=== PATIENT | male | born 1950 | race Caucasian/White ===

== ENCOUNTER → 2018-12-30 18:21 | Outpatient (REF) | payer MEDICARE, OTHER, SELFPAY ==
[2018-12-30 19:47] LABS: Prostate Specific Antigen 1.36 ng/mL (0.10-4.00)
== END ==
LOC: LAB 18:21
PROVIDERS: Family Provider Internal Medicine; PCP Internal Medicine; Visit Provider Family Medicine Geriatric Medicine
DX: C61 Malignant neoplasm of prostate (principal)
CPT/HCPCS: 36415; 84153

== ENCOUNTER 2020-12-03 09:40 | Day surgery (SDC) | payer MEDICARE, OTHER, SELFPAY ==
[2020-12-03] VITALS (12 sets, daily range): BP systolic 136–173; BP diastolic 60–84; PULSE 41–58; RESP 10–18; TEMP 36.3–37; O2SAT 97–100; BMI 24.7
--- NOTE | 2020-12-03 | PATH_ITS ---
[facility] Accession Number: [id number] . 01 Material submitted: . cecum - CECUM POLYP . 02 Diagnosis: Cecum, Polyp, Biopsy: Sessile serrated adenoma. MRV 12/06/2020 1307 Local . 02 Electronically signed: . Audelia Baker MD, Pathologist NPI- [id number] . 01 Gross description: . CECUM POLYP: Received in formalin are 2 fragment(s) of joyner, soft tissue measuring 0.1 x 0.1 x 0.1 cm to 0.8 x 0.2 x 0.2 cm submitted entirely in 1 cassette(s) /SUZETTE 12/05/2020 0037 Local . 02 Pathologist provided ICD-10: D12.0 . 02 CPT . 153492 Performed at: 01 [facility] [address] [id number] MD Ricardo Bueno MD Phone: [phone] Performed at: 02 [facility] [address] [place], [place] [id number] MD Audelia Baker MD Phone: [phone]
[2020-12-03] MEDS: LACTATED RINGERS 1,000 ML 200 ML IV (10:47)
--- NOTE | 2020-12-03 10:53 | SUR.PREOP ---
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 PATIENT WILL TAKE [employer] TAXI TO [facility]. DR. PARKS OF SAME.
--- NOTE | 2020-12-03 11:01 | PM.HP.1 ---
History of Present Illness History of Present Illness Date Patient Seen: 12/03/20 Time Patient Seen: 10:20 Chief complaint: SDC Narrative: The patient is a gentleman here for screening colonoscopy. It has been about 6 years size or 7 years since his last colonoscopy. He has a personal history of polyps Patient History Medical History BPH (benign prostatic hyperplasia) Family history of malignant neoplasm of prostate Male erectile disorder Nocturia associated with benign prostatic hyperplasia Nocturia associated with benign prostatic hyperplasia Surgical History H/O hernia repair S/P total hip resurfacing Family & Social History Social History: household members none Tobacco & Substance use: Smoking Status Never smoker alcohol intake current alcohol intake frequency a few times a week Substance Use Type does not use Meds Home Medications and Allergies Home Medications Medication Instructions Recorded Confirmed Type CHOLECALCIFEROL (VITAMIN D3) 1,000 units PO #0 04/26/13 09/05/20 History (VITAMIN D3) Fish Oil 1,000 mg PO QDAY #0 04/26/13 12/03/20 History clonazepam [Klonopin] 1 mg PO HS #0 04/26/13 12/03/20 History lisinopril 40 mg PO QDAY #0 04/26/13 12/03/20 History simvastatin 20 mg PO BEDTIME #0 04/26/13 12/03/20 History coenzyme Q10 75 mg capsule 75 mg PO DAILY 05/02/20 09/05/20 History desmopressin 0.2 mg tablet 0.2 mg PO BEDTIME #90 tab 08/14/20 12/03/20 Rx Allergies Allergy/AdvReac Type Severity Reaction Status Date / Time Iodinated Contrast Media Allergy Swelling Verified 12/03/20 10:46 of Lip/Tongue/Throat Review of Systems Review of Systems ROS: Yes All systems reviewed with the patient and are negative except as otherwise documented Exam Vital Signs (past 8 hours): - 12/03/20 10:24 Temperature 97.3 F L Pulse Rate 58 L Respiratory Rate 16 Blood Pressure 173/82 H Pulse Oximetry 100 Oxygen Delivery Method Room Air Oxygen Flow Rate 0 Narrative Exam Narrative: Pleasant cooperative patient no apparent distress. Lungs are clear to auscultation. No rales or rhonchi. Heart regular rate and rhythm no murmur gallop. Abdomen is soft nontender without mass. No obvious hernias. Patient is alert and oriented x3. Assessment & Plan Assessment & Plan narrative: The patient for a screening colonoscopy. I have discussed the procedure with them. Risks of bleeding, perforation which would necessitate major operation, failure to find remove all lesions, the potential tattoo were all discussed. All questions were answered. They wished to proceed.
--- NOTE | 2020-12-03 11:02 | PM.PREOP ---
Pre-operative Note COVID-19 COVID-19 status: Negative Result date/Date tested (Pos, Neg/Pending): 12/01/20 Interval Note History & Physical reviewed/Exam performed by Physician: Yes Changes to H&P: No H&P completed within 30 days and has changed as indicated here:: The patient is able to take a taxi to the [place]. We have arranged for his daughter to pick him up when he gets off the [place]. It was made completely clear to him that he cannot drive today under any circumstances. He is agreeable. ASA Class (for procedural sedation): II
[2020-12-03] MEDS: fentaNYL 250 MCG/5 ML INJ IV (11:17)
[2020-12-03] MEDS: MIDAZOLAM 5 MG/5 ML VIAL IV (11:30)
--- NOTE | 2020-12-03 11:47 | PM.OP.ENDO ---
Operative Date/Time/Diagnoses Date of procedure: 12/03/20 Time of procedure: 11:47 Pre-op diagnosis: Screening examination. Last exam 6 or 7 years ago. Personal history of polyps. Post-op diagnosis: same (Diverticulosis. One small cecal polyp.) Procedure & Clinicians Study performed: Colonoscopy with cold biopsy Same procedure as scheduled: Yes Indications: Screening Surgeon: Sonu Matthews Procedure Notes SCOAP/Timeout: Performed Procedure in detail: The patient was placed in the left lateral decubitus position and underwent IV sedation directed by the surgeon consisting of fentanyl and Versed. Digital exam was unremarkable. No masses felt in his prostate which is normal in size.. The scope was inserted and advanced through the rectum into the sigmoid, descending, transverse, and ascending colon. Patient was noted to have sigmoid diverticulosis and occasional right-sided diverticuli. The cecum was reached identified by the ileocecal valve and the appendiceal opening. There was a very small polyp like lesion in the cecum which I biopsied and removed. It was not far from the appendiceal opening. The ileocecal valve was successfully cannulated. The terminal ileum was normal in appearance. The scope was gradually brought out. No other Polyps were found. The scope ultimately was retroflexed in the rectum. The appearance was normal. The scope was removed and the patient tolerated the procedure well. Prep was good. Scope withdrawal time: 12 minutes Sedation minutes: 31 Findings: diverticulosis (Sigmoid colon and ascending colon.) and polyp (One small lesion in the cecum which was biopsied and removed) Specimen(s): other (Cecal polyp) Complications: none Post-procedure Recommendations: Colonscopy in 5 years and High fiber diet Follow up: as needed Disposition: PACU
--- NOTE | 2020-12-03 13:36 | SUR.PHASEII ---
Pt has met discharge criteria: VSS, denied pain or nausea, able to drink fluids without difficulty. Ambulated to bathroom x 1 to void, steady on feet, denied any dizziness. Discharge instructions discussed with patient, all questions answered. Called Brenda Chan to arrange for pickup at ER to [facility]. Transported via [facility] to [facility].
== END 2020-12-03 13:35 | disposition home or self-care (01) ==
PROVIDERS: Family Provider Internal Medicine; PCP Internal Medicine; Referring Provider Specialist; Visit Provider Specialist
PROC: 0DJD8ZZ Inspection of Lower Intestinal Tract, Via Natural or Artificial Opening Endoscopic (ICD-10-PCS; CPT 45378; principal; 2020-12-03 10:45)
DX: Z12.11 Encounter for screening for malignant neoplasm of colon (principal); Z86.010 Personal history of colon polyps; K57.30 Diverticulosis of large intestine without perforation or abscess without bleeding; D12.0 Benign neoplasm of cecum
CPT/HCPCS: 45380; 99152; 99153; J2250; J3010

== ENCOUNTER → 2022-04-23 09:00 | Outpatient (CLI) | payer MEDICARE, OTHER, SELFPAY ==
[2022-04-23 11:04] LABS: Hematocrit 47.9 % (41-53); Hemoglobin 16.3 g/dL (13.5-17.5); Mean Corpuscular Hemoglobin 32.4 PG (26-34); Mean Corpuscular Volume 95.1 fL (80-100); Platelet Count 195 X10^3/uL (150-400); Red Blood Cell Count 5.04 X10^6/uL (4.5-5.9); Red Cell Distribution Width 13.3 % (11.6-14.8); White Blood Cell Count 6.3 X10^3/uL (4.5-11.0)
[2022-04-23 11:42] LABS: Alanine Aminotransferase 27 IU/L (<50); Albumin 4.7 g/dL (3.5-5.0); Albumin Globulin Ratio 1.8 (1.0-2.8); Alkaline Phosphatase 50 U/L (38-126); Aspartate Aminotransferase 32 IU/L (17-59); Bilirubin Total 0.9 mg/dL (0.2-1.3); Blood Urea Nitrogen 22 mg/dL (9-20); Calcium 9.1 mg/dL (8.4-10.2); Carbon Dioxide 27 mmol/L (22-32); Chloride 98 mmol/L (98-107); Cholesterol 168 mg/dL (140-199); Estimated Glomerular Filt Rate > 60 mL/min (>60); Globulin 2.6 g/dL (1.7-4.1); Glucose 87 mg/dL (80-110); HDL Cholesterol 47 mg/dL (40-60); LDL Cholesterol Calculated 104 mg/dL (<100); Potassium 4.6 mmol/L (3.4-5.1); Sodium 135 mmol/L (137-145); Total Protein 7.3 g/dL (6.3-8.2); Triglycerides 86 mg/dL (35-150)
[2022-04-23 12:14] LABS: TSH w/ Reflex to FT4 2.11 uIU/mL (0.47-4.68)
[2022-04-24 05:22] LABS: HEMOLYSIS < 15 (0-50); Prostate Specific Antigen 1.65 ng/mL (0.10-4.00)
== END ==
PROVIDERS: Family Provider Internal Medicine; PCP Internal Medicine; Referring Provider Internal Medicine; Visit Provider Internal Medicine
DX: I10 Essential (primary) hypertension (principal); N40.1 Benign prostatic hyperplasia with lower urinary tract symptoms; E78.2 Mixed hyperlipidemia; R35.1 Nocturia
CPT/HCPCS: 36415; 80053; 80061; 84153; 84443; 85027

== ENCOUNTER → 2023-11-24 16:12 | Outpatient (CLI) | payer MEDICARE, SELFPAY ==
[2023-11-24 18:11] LABS: Aspartate Aminotransferase 35 IU/L (17-59); BUN Creatinine Ratio 31.9 (6-22); Blood Urea Nitrogen 22 mg/dL (9-20); Calcium 9.4 mg/dL (8.4-10.2); Carbon Dioxide 28 mmol/L (22-32); Chloride 99 mmol/L (98-107); Cholesterol 171 mg/dL (140-199); Estimated Glomerular Filt Rate > 60 mL/min (>60); Glucose 93 mg/dL (80-110); HDL Cholesterol 38 mg/dL (40-60); HEMOLYSIS 25 (0-50); LDL Cholesterol Calculated 89 mg/dL (<100); Potassium 4.4 mmol/L (3.4-5.1); Sodium 136 mmol/L (137-145); Triglycerides 219 mg/dL (35-150)
[2023-11-24 18:41] LABS: Prostate Specific Antigen 1.99 ng/mL (0.10-4.00)
== END ==
PROVIDERS: Family Provider Internal Medicine; PCP Internal Medicine; Referring Provider Internal Medicine; Visit Provider Internal Medicine
DX: E78.2 Mixed hyperlipidemia (principal); N40.1 Benign prostatic hyperplasia with lower urinary tract symptoms; I10 Essential (primary) hypertension; R35.1 Nocturia
CPT/HCPCS: 36415; 80048; 80061; 84153; 84450